=== PATIENT | male | born 1970 | race African-American/Black ===

== ENCOUNTER 2024-06-09 05:18 | Emergency (ER) | payer OTHER, SELFPAY ==
[2024-06-09] VITALS (11 sets, daily range): BP systolic 147–170; BP diastolic 97–104; PULSE 70–85; RESP 10–19; TEMP 36.5–36.8; O2SAT 98–100
--- NOTE | ~2024-06-09 | XR_ITS ---
Portable chest x-ray Comparison: None Clinical History: Hypertension Findings: Lungs are clear, without focal consolidation or pleural effusion. Possible COPD Cardiomedi astinal silhouette is unremarkable. Bones and soft tissues are unremarkable. Impression: Clear lungs. Possible COPD. Reviewed, dictated and finalized at location [facility] [employer] Impression: Clear lungs. Possible COPD.
--- NOTE | 2024-06-09 05:50 | ECG_ITS ---
Test Date: 2024-06-09 05:32:44 Measurements Intervals [place] Rate: 70 P: 65 [place]: 161 QRS: 60 QRSD: 102 T: 65 QT: 405 QTc: 440 Interpretive Statements SINUS RHYTHM No previous ECG available for comparison Electronically Signed On 06-09-2024 09:23:19 ALIGNING CHECKER by Be Mckeon M.D.
[2024-06-09 06:46] LABS: Basophils Percent Auto 0.6 % (0.2-1.2); Eosinophils Absolute Auto 0.1 K/mm3 (0-0.3); Hematocrit 36.3 % (42.0-52.0); Hemoglobin 13.6 g/dL (14.0-18.0); Immature Granulocyte Absolute 0.01 K/mm3 (0.00-0.031); Immature Granulocyte Percent A 0.2 % (0-0.5); Lymphocytes Absolute Auto 1.72 K/mm3 (0.9-3.2); Lymphocytes Percent Auto 34.7 % (18.3-44.2); Mean Corpuscular HGB Conc 37.5 g/dl (32-36); Mean Corpuscular Volume 82.7 fl (80-100); Mean Platelet Volume 8.7 fl (7.4-10.4); Monocytes Absolute Auto 0.6 K/mm3 (0.1-0.6); Monocytes Percent Auto 12.9 % (2.6-8.5); Neutrophils Absolute Auto 2.5 K/mm3 (1.3-6.7); Neutrophils Percent Auto 50.6 % (45.5-73.1); Platelet Count Result 220 k/mm3 (150-375); Red Blood Count 4.39 M/mm3 (4.6-6.20); Red Cell Distribution Width 12.6 % (11.5-14.5)
[2024-06-09 06:54] LABS: Alanine Aminotransferase 22 U/L (6-50); Albumin Level 4.4 g/dL (3.5-5.1); Alkaline Phosphatase 69 U/L (38-126); Anion Gap 8 mmol/L (4-12); Aspartate Amino Transferase 66 U/L (17-59); Blood Urea Nitrogen 6 mg/dL (9-20); Calcium 8.6 mg/dL (8.4-10.2); Carbon Dioxide 32 mmol/L (22-30); Chloride 98 mmol/L (98-107); Estimated CRCL calculation 123 ml/min; Estimated Glomerular Filt Rate > 60; Glucose 97 mg/dL (65-110); Lipase 79 U/L (23-300); Potassium 3.4 mmol/L (3.4-5.0); Sodium 138 mmol/L (137-145)
[2024-06-09 07:03] LABS: INR 1.1; Prothrombin Time 14.8 Seconds (11.1-14.7)
[2024-06-09 07:05] LABS: Troponin I < 0.012 ng/mL (0.000-0.034)
--- NOTE | 2024-06-09 08:34 | ED.GENADULT ---
HPI - General Adult General Chief complaint: Recheck/Abnormal Lab/Rx Stated complaint: HTN, 250/160, felt whoozy Time Seen by Provider: 06/09/24 05:26 History of Present Illness HPI narrative: Patient is a 53-year-old male who presents ER with dizziness and elevated blood pressure. Sudden dizziness this morning. Spinning. Last a couple minutes and then resolved. No reproducible dizziness at this time. He took his blood pressure afterwards and systolic number was in the 250s. No chest pain or chest pressure. No vomiting. No focal weakness to an arm or leg or slurred speech. No history of hypertension. Has not seen his PCP in 1 year. Related Data Allergies Allergy/AdvReac Type Severity Reaction Status Date / Time No Known Allergies Allergy Verified 06/09/24 05:19 Review of Systems Review of Systems: All systems reviewed & are unremarkable except as noted in HPI and below Constitutional: Constitutional: Reports no additional constitutional complaints ENT: Reports system reviewed and no additional complaints, except as documented Cardiovascular: Cardiovascular: Reports no additional cardiovascular complaints Respiratory: Respiratory: Reports no additional respiratory complaints Musculoskeletal: Musculoskeletal: Reports no additional musculoskeletal complaints [facility] Past Medical History Medical History (Updated 06/09/24 @ 08:39 by Stevenson Burr MD) Healthy adult male Surgical History Surgical History (Updated 06/09/24 @ 08:39 by Stevenson Burr MD) No history of previous surgery Exam Narrative: GENERAL: Well-appearing, well-nourished, and in no acute distress. HEAD: Normocephalic, atraumatic. ENT: Mucous membranes moist. Normal right TM. Left TM obstructed by a large cerumen impaction. CHEST: Clear to auscultation. No respiratory distress. HEART: Regular rate and rhythm. Normal peripheral pulses. EXTREMITIES: Normal range of motion. No edema. SKIN: Warm, dry, no rash. NEURO: Clear speech. No facial droop. Normal strength arms and legs. Alert and oriented x3. PSYCH: Normal mood and affect. Course Course Emergency Course: Cerumen removed. Blood pressure within acceptable range. May have some chronic hypertension. Elevated blood pressures this morning felt to be related to distress from vertigo secondary to cerumen impaction. Appropriate for discharge home. Asymptomatic. Discussed lab/imaging/EKG. Vital Signs Vital signs: Vital Signs Temperature 98 F 06/09/24 05:39 Pulse Rate 74 01/16/25 05:39 Respiratory Rate 14 06/09/24 05:39 Blood Pressure 170/102 H 06/09/24 05:39 Pulse Oximetry 98 06/09/24 05:39 Temperature 98.2 F 06/09/24 05:43 Pulse Rate 85 06/09/24 06:54 Respiratory Rate 15 06/09/24 06:54 Blood Pressure 159/104 H 06/09/24 06:54 Pulse Oximetry 99 06/09/24 06:54 Oxygen Delivery Room Air 06/09/24 05:43 Procedures Ear Wax Removal Left Ear: Ear Wax Removal Date: 06/09/24 Ear Wax Removal Time: 08:34 Cerumenolytic Used: 5-10% Sodium Bicarb solution Results: Re-examined: some cerumen remains TM Examination: TM(s) intact, normal appearance Ear Canal Exam: atraumatic Patient Tolerated Procedure: well Complications: no problems Technique: ear canal irrigated and ear canal curetted Medical Decision Making Vital Signs Vital Signs: Vital Signs Temperature 98 F 06/09/24 05:39 Pulse Rate 74 06/09/24 05:39 Respiratory Rate 14 06/09/24 05:39 Blood Pressure 170/102 H 06/09/24 05:39 Pulse Oximetry 98 06/09/24 05:39 Temperature 98.2 F 06/09/24 05:43 Pulse Rate 85 06/09/24 06:54 Respiratory Rate 15 06/09/24 06:54 Blood Pressure 159/104 H 06/09/24 06:54 Pulse Oximetry 99 06/09/24 06:54 Oxygen Delivery Room Air 06/09/24 05:43 Lab Data 06/09/24 06:30 06/09/24 06:30 Labs: Lab Results 06/09/24 Range/Units 06:30 WBC 5.0 (4.5-10.0) K/mm3 RBC 4.39 L (4.6-6.20) M/mm3 Hgb 13.6 L (14.0-18.0) g/dL Hct 36.3 L (42.0-52.0) % MCV 82.7 (80-100) fl MCH 31.0 (26-34) pg MCHC 37.5 H (32-36) g/dl RDW 12.6 (11.5-14.5) % Plt Count 220 (150-375) k/mm3 MPV 8.7 (7.4-10.4) fl Immature Gran % (Auto) 0.2 (0-0.5) % Neut % (Auto) 50.6 (45.5-73.1) % Lymph % (Auto) 34.7 (18.3-44.2) % [place] % (Auto) 12.9 H (2.6-8.5) % Eos % (Auto) 1.0 (0-4.4) % Baso % (Auto) 0.6 (0.2-1.2) % Lymph # (Auto) 1.72 (0.9-3.2) K/mm3 [place] # (Auto) 0.6 (0.1-0.6) K/mm3 Eos # (Auto) 0.1 (0-0.3) K/mm3 Baso # (Auto) 0.0 (0.0-0.1) K/mm3 Abs Immat Gran (auto) 0.01 (0.00-0.031) K/mm3 Absolute Neuts (auto) 2.5 (1.3-6.7) K/mm3 Absolute Nucleated RBC 0.000 (0.0-0.012) K/mm3 Nucleated RBC % 0.0 (0.0-0.2) % PT 14.8 H (11.1-14.7) Seconds INR 1.1 APTT 32.0 (22.3-36.8) Seconds Sodium 138 (137-145) mmol/L Potassium 3.4 (3.4-5.0) mmol/L Chloride 98 (98-107) mmol/L Carbon Dioxide 32 H (22-30) mmol/L Anion Gap 8 (4-12) mmol/L BUN 6 L (9-20) mg/dL Creatinine 0.55 L (0.7-1.3) mg/dL Estim Creat Clear Calc 123 ml/min Estimated GFR > 60 (59 - ) Glucose 97 (65-110) mg/dL Calcium 8.6 (8.4-10.2) mg/dL Total Bilirubin 1.0 (0.2-1.3) mg/dL AST 66 H (17-59) U/L ALT 22 (6-50) U/L Alkaline Phosphatase 69 (38-126) U/L Troponin I < 0.012 (0.000-0.034) ng/mL Total Protein 8.0 (6.3-8.2) g/dL Albumin 4.4 (3.5-5.1) g/dL Lipase 79 (23-300) U/L Imaging Data Radiologist's impression: ITS Impressions Chest X-Ray 06/09/24 06:08 Impression: Clear lungs. Possible COPD. ECG Data EKG #1: ECG completion date: 06/09/24 ECG completion time: 05:32 EKG Interpretation: normal rate (70), sinus rhythm, no ectopy, normal QRS, normal QT and NL axis Discharge Plan Discharge Clinical Impression: Cerumen impaction, Vertigo Patient Disposition: Home, Self-Care Condition: Stable Instructions: Vertigo (ED) Additional Instructions: You had dizziness that was likely related to ear wax impaction. Return the ER if you have worsening dizziness, have weakness in arm or leg, you have slurred speech, have additional concerns. Her blood pressure has been slightly elevated initiate follow-up with your primary care doctor to discuss whether you should be started on a blood pressure medication. Patient Language: Wolof Prescriptions: New Ear Wax Drops 6.5 % drops 5 drp LEFT EAR Q12H 4 Days Qty: 15 0RF Follow-up/Referrals: Angelo Caldwell MD [Primary Care Provider] - 1 Week
== END 2024-06-09 08:48 | disposition home or self-care (01) ==
PROVIDERS: Emergency Medicine; Emergency Provider Emergency Medicine; PCP Emergency Medicine
DX: R42 Dizziness and giddiness (principal); H61.22 Impacted cerumen, left ear
CPT/HCPCS: 36415; 69209; 71045; 80053; 83690; 84484; 85025; 85610; 85730; 93005; 99284; A9270